=== PATIENT | female | born 1940 | race Caucasian/White ===

== ENCOUNTER 2018-02-14 11:20 | Inpatient (IN) | payer OTHER ==
[~2018-02-14] VITALS: Ht 162.6 cm; Wt 98.4 kg
--- NOTE | ~2018-02-14 | PROC ---
[facility] [address] [facility] [place] [address] PROCEDURE REPORT Name: RANDY ARELLANO Room: [address] IN .R.#: [id number] Admission: 02/14/18 Attend Phys: Amari Garcia, Discharge: 02/17/18 Date of : 42 Report #: [id number] THIS REPORT FOR: //name// For GI report, please see the Provation report in Perceptive 7 content. By: 0618Medical Records Staff GIBRAN /JOVITA
[~2018-02-14 11:20] MED LIST: ASPIRIN EC81 M1 PO; BACTRIM DS TAB1 EACH PO; BANOPHEN25 MG PO; CARVEDILOL25 MG PO; CELEBREX 200 M200 M1 PO; CLARINEX-D 121 EACH PO; CLOTRIMAZOLE AF30 GM TP; COLESTID1 GM PO; FLAGYL500 M1 PO; FLAGYL500 MG PO; KEFLEX500 MG PO; MACROBID 100 M100 M1 PO; MICROZIDE12.5 MG PO; NEURONTIN 300300 M1 PO; NORFLEX100 MG PO; OMEPRAZOLE 20 MG CAP PO; PHENERGAN 25 MG25 M1 PO; PRINIVIL20 MG PO; SIMVASTATIN80 MG PO; TIZANIDINE HCL4 M1 PO; TRAMADOL HCL50 MG PO; VITAMIN D1000 UNI1 PO; [UNRECOGNIZED DRUG - OTHER] PO
[2018-02-14 11:54] VITALS: BP 153/69
[2018-02-14 11:57] LABS: ABSOLUTE BASOPHILS 0.1 thou/uL (0.0-0.2); ABSOLUTE EOSINOPHILS 0.5 thou/uL (0.0-0.7); ABSOLUTE LYMPHOCYTES 1.6 thou/uL (0.8-5.3); ABSOLUTE MONOCYTES 0.6 thou/uL (0.0-1.2); ABSOLUTE NEUTROPHILS 6.5 thou/uL (1.6-8.1); BASOPHILS 1.3 %; EOSINOPHILS 5.5 %; HEMATOCRIT 34.8 % (37.0-47.0); HEMOGLOBIN 11.1 gm/dL (12.0-15.0); LYMPHOCYTES 17.5 %; MCH 24.5 pg (26.0-34.0); MCHC 31.8 g/dL (28.0-37.0); MCV 76.9 fL (80.0-100.0); MONOCYTES 5.9 %; MPV 8.7 fl. (7.2-11.1); NUCLEATED RBCS 0 /100WBC; PLATELET COUNT* 206 thou/uL (150-400); POLYS 69.8 %; RBC 4.53 mil/uL (4.20-5.00); RDW-CV 18.1 % (10.5-14.5); WBC 9.3 thou/uL (4.0-11.0)
[2018-02-14 12:04] LABS: ANION GAP 2 mmol/L (7-16); BUN 11 mg/dL (7-18); CALCIUM 9.3 mg/dL (8.5-10.1); CHLORIDE 104 mmol/L (98-107); CO2 32 mmol/L (21-32); CREATININE 0.9 mg/dL (0.6-1.3); GLUCOSE 117 mg/dL (70-99); POTASSIUM 3.7 mmol/L (3.5-5.1); SODIUM 138 mmol/L (136-145)
[2018-02-14 12:11] LABS: ALBUMIN 3.3 g/dL (3.4-5.0); ALKALINE PHOSPHATASE 116 U/L (46-116); LIPASE 144 U/L (73-393); SGOT 17 U/L (15-37); SGPT 16 U/L (30-65); TOTAL PROTEIN 7.1 g/dL (6.4-8.2); TROPONIN-I LEVEL <0.06 ng/mL (<0.06)
[2018-02-14] MEDS ORDERED: EXELON1 EAC1 TOP (12:21)
[2018-02-14] MEDS ORDERED: B12INJ IM (12:21)
[2018-02-14] MEDS ORDERED: NAMENDA 10 MG T10 MG PO (12:21)
[2018-02-14] MEDS ORDERED: SYNTHROID88 MCG PO (12:22)
[2018-02-14] MEDS ORDERED: CELEXA40 MG PO (12:22)
[2018-02-14 13:40] LABS: URINE BILIRUBIN NEGATIVE (Negative); URINE BLOOD NEGATIVE (Negative); URINE CLARITY CLEAR; URINE COLOR YELLOW; URINE GLUCOSE-RANDOM NEGATIVE (Negative); URINE KETONES NEGATIVE (Negative); URINE LEUKOCYTES-REFLEX NEGATIVE (Negative); URINE NITRITE-REFLEX NEGATIVE (Negative); URINE PROTEIN NEGATIVE (Negative)
[2018-02-14 16:03] VITALS: BP 156/76
[2018-02-14 16:30] VITALS: BP 141/66
[2018-02-14 20:00] VITALS: BP 135/71
[2018-02-15 08:00] VITALS: BP 151/68
--- NOTE | 2018-02-15 15:11 | EKG ---
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 : [id number] Requested By: Chelsea Roca Order Number: [id number] MD: Dakotah Painter Measurements Intervals [place] Rate: 63 P: 20 ID: [id number] QRS: -9 QRSD: 88 T: 32 QT: 461 QTc: 472 Interpretive Statements Sinus rhythm Left ventricular hypertrophy Compared to ECG 08/03/2015 10:28:23 Left ventricular hypertrophy now present T-wave abnormality no longer present Prolonged QT interval no longer present Electronically Signed On 02-15-2018 15:11:20 CDT by Dakotah Painter [email or web address] <ELECTRONICALLY SIGNED> By: Dakotah Painter MD, FAC 02/15/18 1511 1142 1142 Dakotah Painter MD, [facility] /EPI
[2018-02-15 16:14] VITALS: BP 147/64
[2018-02-15 20:00] VITALS: BP 154/81
[2018-02-16 08:30] VITALS: BP 186/75
[2018-02-16 10:39] VITALS: BP 186/75
[2018-02-16 15:30] VITALS: BP 156/81
[2018-02-16 20:00] VITALS: BP 143/69
[2018-02-17 05:19] LABS: ABSOLUTE BASOPHILS 0.1 thou/uL (0.0-0.2); ABSOLUTE EOSINOPHILS 0.5 thou/uL (0.0-0.7); ABSOLUTE LYMPHOCYTES 1.9 thou/uL (0.8-5.3); ABSOLUTE MONOCYTES 0.7 thou/uL (0.0-1.2); ABSOLUTE NEUTROPHILS 5.7 thou/uL (1.6-8.1); BASOPHILS 0.7 %; EOSINOPHILS 5.9 %; HEMATOCRIT 32.3 % (37.0-47.0); HEMOGLOBIN 10.3 gm/dL (12.0-15.0); LYMPHOCYTES 21.6 %; MCH 24.3 pg (26.0-34.0); MCHC 31.8 g/dL (28.0-37.0); MCV 76.6 fL (80.0-100.0); MONOCYTES 7.5 %; MPV 8.8 fl. (7.2-11.1); NUCLEATED RBCS 0 /100WBC; PLATELET COUNT* 184 thou/uL (150-400); POLYS 64.3 %; RBC 4.22 mil/uL (4.20-5.00); RDW-CV 18.1 % (10.5-14.5); WBC 8.8 thou/uL (4.0-11.0)
[2018-02-17 05:35] LABS: ALBUMIN 2.8 g/dL (3.4-5.0); CALCIUM 8.1 mg/dL (8.5-10.1); CREATININE 0.8 mg/dL (0.6-1.3); POTASSIUM 3.9 mmol/L (3.5-5.1); TOTAL BILIRUBIN 0.9 mg/dL (<0.1-1.0); TOTAL PROTEIN 5.8 g/dL (6.4-8.2)
[2018-02-17] MEDS ORDERED: ERYTHROMYCIN250 MG PO (09:36)
[2018-02-17 10:00] VITALS: BP 143/69
[2018-02-17 10:35] VITALS: BP 143/69
[2018-02-17 10:58] VITALS: BP 143/69
--- NOTE | 2018-02-23 08:22 | CON ---
[address] [address] CONSULTATION Name: RANDY ARELLANO Room: [address] IN .R.#: [id number] Admission: 02/14/18 Attend Phys: Amari Garcia, Discharge: 02/17/18 Date of : 42 Report #: [id number] THIS REPORT FOR: //name// CC: Daljit Garcia MD DATE OF SERVICE: 02/15/2018 REASON FOR CONSULT: Abnormal CT and gastric retention. REFERRING PHYSICIAN: This is a consult requested by Dr. Amari Garcia. HISTORY OF PRESENT ILLNESS: This is a 77-year-old female with history of chronic constipation who was last seen by us back in 2015 for diverticulitis versus colonic ischemia and constipation. The patient apparently has recently changed her diet and has been doing more fiber. She has history of Arslan shunt gastric bypass and has been complaining of fullness, epigastric pain and regurgitation. Her had brought her to hospital. During hospitalization, the patient underwent CT of abdomen and pelvis, which revealed some gastric retention, which may suggest partial gastric outlet obstruction. NG tube has been in place and so far 200 mL of NG aspirate has been produced. The patient is currently lying in bed comfortably with family around. She denies any nausea, vomiting, abdominal pain. Her last bowel movement was 3 days ago, which is not that unusual for her. She is passing gas. PAST MEDICAL HISTORY: Significant for history of Alzheimer disease, diverticulitis, hypothyroidism, hypertension, hyperlipidemia, gastric Arslan surgery back in , gallbladder disease status post cholecystectomy in 1967, total hysterectomy, osteoarthritis, and left knee arthroscopy. ALLERGIES AND MEDICATIONS: Please refer to hospital MAR. SOCIAL HISTORY: The patient lives at home with her . She has Alzheimer disease and her had recent stroke about a month ago. She denies tobacco or alcohol use. FAMILY HISTORY: Noncontributory. PHYSICAL EXAMINATION: VITAL SIGNS: Blood pressure of 151/68, respirations 16, pulse 61, temperature 97.7. LUNGS: [place] [address] CONSULTATION Name: RANDY Room: [address]#: [id number] Admission: 02/14/18 Attend Phys: Amari Garcia, Discharge: 02/17/18 Date of : 42 Report #: [id number] CARDIOVASCULAR: Regular. ABDOMEN: Large, soft, nontender, nondistended. Bowel sounds are positive. NEUROLOGIC: The patient is able to answer questions. LABORATORY DATA: Reveal sodium of 138, potassium 3.7, BUN is 11, creatinine 0.9, glucose is 117, AST 17, ALT 16, alkaline phosphatase 116, total bilirubin is 1, albumin is 3.3. WBC is 9.3, hemoglobin is 11.1, and platelet is 206. IMAGING: CT of abdomen and pelvis was obtained on admission. This was significant for post-surgical changes of gastric bypass surgery with a large collection within the left upper quadrant posterior to the stomach measuring approximately 11.3 x 8.7 cm. This contains gas and debris. ASSESSMENT AND PLAN: The patient with gastric retention, which may be due to a motility issue or gastroparesis versus anastomotic ulcer and gastric outlet obstruction. We will continue NG tube and start her on Protonix 40 mg IV b.i.d. We will perform an upper endoscopy tomorrow and make further recommendation once the EGD is complete. The patient and family are agreeable with plan. <ELECTRONICALLY SIGNED> By: Raquel Murphy MD 02/23/18 0822 [id number] Murphy MD /nt
== END 2018-02-17 12:30 | disposition home or self-care (01) | DRG 381 ==
LOC: M.ERS 11:20 → M.ORTHSURG 14:15 → M.TBA-ER 14:15 → M.ORTHSURG 16:53
PROVIDERS: Internal Medicine; Nurse Practitioner Family; ADMIT Family Medicine
PROC: 0DBA8ZX Excision of Jejunum, Via Natural or Artificial Opening Endoscopic, Diagnostic (ICD-10-PCS; principal; 2018-02-16)
PROC: 0DB68ZX Excision of Stomach, Via Natural or Artificial Opening Endoscopic, Diagnostic (ICD-10-PCS; principal; 2018-02-16)
DX: K31.1 Adult hypertrophic pyloric stenosis (principal); E44.1 Mild protein-calorie malnutrition; E86.0 Dehydration; R19.09 Other intra-abdominal and pelvic swelling, mass and lump; E78.00 Pure hypercholesterolemia, unspecified; E03.9 Hypothyroidism, unspecified; M19.90 Unspecified osteoarthritis, unspecified site; K59.09 Other constipation; G30.9 Alzheimer's disease, unspecified; F02.80 Dementia in other diseases classified elsewhere, unspecified severity, without behavioral disturbance, psychotic disturbance, mood disturbance, and anxiety; E78.5 Hyperlipidemia, unspecified; K31.89 Other diseases of stomach and duodenum; K44.9 Diaphragmatic hernia without obstruction or gangrene; K30 Functional dyspepsia; K21.9 Gastro-esophageal reflux disease without esophagitis; Z79.899 Other long term (current) drug therapy; Z88.6 Allergy status to analgesic agent; Z90.710 Acquired absence of both cervix and uterus; Z88.1 Allergy status to other antibiotic agents; Z88.8 Allergy status to other drugs, medicaments and biological substances; Z91.048 Other nonmedicinal substance allergy status; Z79.82 Long term (current) use of aspirin; Z90.49 Acquired absence of other specified parts of digestive tract; Z98.0 Intestinal bypass and anastomosis status

== ENCOUNTER 2018-06-04 19:20 | Inpatient (IN) | payer OTHER ==
[~2018-06-04] VITALS: Ht 157.5 cm; Wt 93.9 kg
[~2018-06-04 19:20] MED LIST changes: +B12INJ IM; +CELEXA40 MG PO; +ERYTHROMYCIN250 MG PO; +EXELON1 EAC1 TOP; +NAMENDA 10 MG T10 MG PO; +SYNTHROID88 MCG PO
[2018-06-04 19:26] VITALS: BP 151/82
[2018-06-04 19:44] LABS: ABSOLUTE BASOPHILS 0.1 thou/uL (0.0-0.2); ABSOLUTE EOSINOPHILS 0.4 thou/uL (0.0-0.7); ABSOLUTE LYMPHOCYTES 2.1 thou/uL (0.8-5.3); ABSOLUTE MONOCYTES 0.6 thou/uL (0.0-1.2); ABSOLUTE NEUTROPHILS 6.1 thou/uL (1.6-8.1); BASOPHILS 1.1 %; EOSINOPHILS 4.4 %; HEMATOCRIT 42.4 % (37.0-47.0); HEMOGLOBIN 13.7 gm/dL (12.0-15.0); LYMPHOCYTES 22.6 %; MCH 27.8 pg (26.0-34.0); MCHC 32.4 g/dL (28.0-37.0); MCV 85.8 fL (80.0-100.0); MONOCYTES 6.7 %; MPV 8.8 fl. (7.2-11.1); NUCLEATED RBCS 0 /100WBC; PLATELET COUNT* 172 thou/uL (150-400); POLYS 65.2 %; RBC 4.94 mil/uL (4.20-5.00); RDW-CV 27.5 % (10.5-14.5); WBC 9.4 thou/uL (4.0-11.0)
[2018-06-04 19:54] LABS: CALCIUM 8.7 mg/dL (8.5-10.1); CREATININE 0.8 mg/dL (0.6-1.3); POTASSIUM 3.6 mmol/L (3.5-5.1)
[2018-06-04 19:59] LABS: ALBUMIN 3.4 g/dL (3.4-5.0)
[2018-06-04 20:45] LABS: URINE BILIRUBIN NEGATIVE (Negative); URINE BLOOD NEGATIVE (Negative); URINE CLARITY CLEAR; URINE COLOR YELLOW; URINE GLUCOSE-RANDOM NEGATIVE (Negative); URINE KETONES NEGATIVE (Negative); URINE LEUKOCYTES-REFLEX NEGATIVE (Negative); URINE NITRITE-REFLEX NEGATIVE (Negative); URINE PROTEIN NEGATIVE (Negative)
[2018-06-04 20:53] LABS: LARGE PLATELETS RARE
[2018-06-04 20:54] LABS: PLATELET ESTIMATE ADEQUATE
[2018-06-04 20:55] LABS: ANISOCYTOSIS 3+; OVALOCYTES Occasional
[2018-06-04 20:56] LABS: MICROCYTES Occasional
[2018-06-04 23:15] VITALS: BP 146/72
[2018-06-04 23:50] VITALS: BP 121/72
--- NOTE | 2018-06-05 00:45 | NUR ---
ALERT AND ORIENTED X 4 BUT POOR HISTORIAN FEMALE PATIENT ADMITTED TO BED 104 BY CART FROM ER IN STABLE CONDITION. VITAL SIGNS STABLE ON ARRIVAL. DENIES PAIN OR NAUSEA. SCD'S PLACED. IVF'S INITIATED RIGHT IV SITE. ADMISSION ROUTINES IN PROGRESS. CONTINUE TO MONITOR.
--- NOTE | 2018-06-05 04:33 | NUR ---
PATIENT RESTING QUIETLY ON HOURLY ROUNDS SINCE ARRIVAL TO UNIT. IVF'S PER ORDERS. NPO AT MIDNIGHT FOR GI CONSULT THIS AM. CONTINUE TO MONITOR.
[2018-06-05 08:00] VITALS: BP 143/65
--- NOTE | 2018-06-05 12:01 | NUR ---
PT.WAS ALERT AND ORIENTED. AT BEDSIDE. SHE SAID SHE IS INDEPENDENT AT HOME. USES NO DME. NO HX OF HOME HEALTH OR SNF. AND DAUGHTER IS SUPPORTIVE. NO DISCHARGE NEEDS ANTICIPATED.
[2018-06-05 16:54] VITALS: BP 129/62
--- NOTE | 2018-06-05 17:01 | NUR ---
SHIFT NOTE - PT ADVANCED TO CLEAR LIQUID DIET. TOLERATING WELL. DENIES ANY NAUSEA OR ABD PAIN. PT UP WITH ASSIST TO BATHROOM WITH NO DIFFICULTIES. FAMILY PRESENT AT BEDSIDE THIS AFTERNOON.
[2018-06-05 21:30] VITALS: BP 144/76
--- NOTE | 2018-06-06 06:45 | NUR ---
PATIENT ALERT AND ORIENTED BUT FORGETFUL AT TIMES. NO C/O N/V OR PAIN. IV FLUIDS INFUSING WITHOUT DIFFICULTY. UP WITH STAND BY ASSIST TO BEDSIDE COMMODE. BED ALARM ON. CALL LIGHT WITHIN REACH. WILL CONTINUE TO MONITOR.
[2018-06-06 09:54] VITALS: BP 162/75
[2018-06-06 16:00] VITALS: BP 148/79
--- NOTE | 2018-06-06 17:23 | NUR ---
ASSUMED CARE OF PATIENT AFTER MORNING REPORT AT APPROX 0720. ALERT AND ORIENTED X4. ASSESSMENT COMPLETED AND CHARTED. VSS ON ROOM AIR. PATIENT HAS HAD NO COMPLAINTS OF NAUSEA OR SOA. PAIN HAS BEEN MANAGED WITH MEDICATION. FLUIDS INFUSED ORDERED. PATIENTS DIET ADVANCED TO SOFT FIBER RESTRICTED, TOLERATING THIS WELL. SUPPORTIVE FAMILY AT BEDSIDE THROUGHOUT SHIFT. PATEINT RESTING COMFORTABLY IN BED AT THIS TIME. HOURLY ROUNDS MAINTAINED, CALL LIGHT WITHIN REACH, NURSING WILL CONTINUE TO MONITOR.
[2018-06-06 21:35] VITALS: BP 132/72
--- NOTE | 2018-06-07 05:35 | NUR ---
PATIENT RESTING QUIETLY ON HOURLY ROUNDS. UP TO BATHROOM WITH 1 ASSIST. DENIED NEED FOR PAIN MEDICATION. NO C/O N/V. IVF INFUSING WITHOUT DIFFICULTY. CONTINUES ON ORAL ANTIBIODIC. PROGRESSING TOWARD DISCHARGE GOAL.
[2018-06-07 09:59] VITALS: BP 145/80
[2018-06-07] MEDS ORDERED: ERYTHROMYCIN250 M1 PO (13:26)
[2018-06-07 13:28] VITALS: BP 145/80
--- NOTE | 2018-06-07 14:26 | NUR ---
ASSUMED CARE OF PATIENT AFTER MORNING REPORT AT APPROX 0720. ALERT AND ORIENTED X4. ASSESSMENT COMPLETED AND CHARTED. VSS ON ROOM AIR. NO COMPLAINTS OF NAUSEA OR SOA. PAIN MANAGED WITH MEDICATION. FLUIDS INFUSED ORDERED. TOLERATING DIET WELL. DISCHARGED AT 1345, ALL PERSONAL BELONGINGS AND DISCHARGE INFORMATION SENT WITH PATIENT UPON DISCHARGE.
--- NOTE | 2018-06-25 13:22 | CON ---
[facility] [address] [place] [address] CONSULTATION Name: RANDY ARELLANO Room: [address] IN .R.#: [id number] Admission: 06/04/18 Attend Phys: Alea Pichardo Discharge: 06/07/18 Date of : 42 Report #: [id number] THIS REPORT FOR: //name// CC: Daljit Sosa HISTORY OF PRESENT ILLNESS: The patient is a pleasant 77-year-old female who was consulted for abdominal pain, nausea. The patient is known to our service from her prior hospitalization in January when she presented with similar symptoms. The patient has prior history of diabetes, hypertension, and Alzheimer's disease. She reports lower abdominal pain that presented yesterday at the time of admission and has subsequently resolved over the course of her admission. She denies any significant abdominal pain, nausea or vomiting at this time. She reports the pain was located in the lower abdomen, was sharp and nonradiating. She did not report any change in her bowel habits at that time. The patient had prior history of gastric bypass for weight loss and Arslan shunt. During her last hospitalization, CT scan demonstrated dilation of the gastric pouch and an EGD demonstrated some inflammation around the gastrojejunal anastomosis, but there was no stricture. PAST MEDICAL HISTORY: As mentioned before, the patient has history of Alzheimer's, hypertension, hyperlipidemia, and diabetes mellitus that is controlled with diet. PAST SURGICAL HISTORY: As mentioned before, the patient has a remote history of gastric bypass and Arslan shunt surgery. FAMILY HISTORY: The patient lives at home with her . There is no significant history of smoking, alcohol or recreational drug use. REVIEW OF SYSTEMS: A comprehensive 10-point review of systems is negative except for what is mentioned in the HPI. PHYSICAL EXAMINATION: VITAL SIGNS: Temperature 36.8, pulse rate 60, blood pressure 143/65, respirations 16, and pulse ox 95% on room air. GENERAL: The patient is alert, awake. HEENT: Mucous membranes are moist. There is no congestion. NECK: Supple. There is no supraclavicular lymphadenopathy. CARDIOVASCULAR: Rate and rhythm regular, S1, S2 present. LUNGS: Clear to auscultation. ABDOMEN: Soft. There is no tenderness. There is no guarding and there is no organomegaly palpable. EXTREMITIES: Warm and well perfused. There is no pitting edema. SKIN: [place] [address] CONSULTATION Name: RANDY ARELLANO Room: [address]#: [id number] Admission: 06/04/18 Attend Phys: Alea Pichardo Discharge: 06/07/18 Date of : 42 Report #: [id number] LABORATORY DATA: Hemoglobin 13.7, hematocrit 42.4, platelet count 172. Sodium 139, potassium 3.6, chloride 103, bicarbonate 33, BUN 13, creatinine 0.8, alkaline phosphatase 122, AST 24, ALT 21, total bilirubin 1, albumin 3.4. IMAGING DATA: CT abdomen with IV contrast: No acute abnormalities in the abdomen and pelvis. Previous gastric bypass procedure. Markedly distended gastric pouch, similar to previous exams. ASSESSMENT AND PLAN: This is a pleasant 77-year-old female with past medical history of gastric bypass for weight loss, presented with an episode of acute abdominal pain. CT shows evidence of dilation of the gastric pouch, which is similar to her previous episode. The patient was previously placed on erythromycin, but she stopped this. Erythromycin has been resumed while she is inpatient. The patient is bound to develop tachyphylaxis to erythromycin. I would recommend placing her on erythromycin 1 week per month and then stopping it off and then resuming it after 3 weeks. I suspect she has some underlying gastric dysmotility, but because of her gastric bypass history, gastric emptying test may be deferred. The patient also appears to have chronic constipation at baseline and I would place her on MiraLax or Metamucil daily when she returns home. These recommendations were discussed with the patient's daughter who is at her bedside. <ELECTRONICALLY SIGNED> By: Cruzito Yap MD 06/25/18 1322 1654 [id number] Yap MD /nt
== END 2018-06-07 13:45 | disposition home or self-care (01) | DRG 392 ==
LOC: M.ERS 19:20 → M.ORTHSURG 22:33 → M.TBA-ER 22:33 → M.ORTHSURG 23:32
PROVIDERS: Emergency Medicine; ADMIT Internal Medicine
DX: K31.4 Gastric diverticulum (principal); I10 Essential (primary) hypertension; E78.00 Pure hypercholesterolemia, unspecified; E03.9 Hypothyroidism, unspecified; G30.9 Alzheimer's disease, unspecified; F02.80 Dementia in other diseases classified elsewhere, unspecified severity, without behavioral disturbance, psychotic disturbance, mood disturbance, and anxiety; K21.9 Gastro-esophageal reflux disease without esophagitis; E86.0 Dehydration; E11.9 Type 2 diabetes mellitus without complications; M19.90 Unspecified osteoarthritis, unspecified site; G31.9 Degenerative disease of nervous system, unspecified; E66.01 Morbid (severe) obesity due to excess calories; Z68.37 Body mass index [BMI] 37.0-37.9, adult; Z90.49 Acquired absence of other specified parts of digestive tract; Z90.710 Acquired absence of both cervix and uterus; Z88.6 Allergy status to analgesic agent; Z88.1 Allergy status to other antibiotic agents; Z88.0 Allergy status to penicillin; Z88.8 Allergy status to other drugs, medicaments and biological substances; Z98.84 Bariatric surgery status; Z79.82 Long term (current) use of aspirin; Z79.899 Other long term (current) drug therapy

== ENCOUNTER 2021-07-04 16:32 | Observation (INO) | payer OTHER ==
[~2021-07-04] VITALS: Ht 152.4 cm; Wt 104.8 kg
[~2021-07-04 16:32] MED LIST changes: +ERYTHROMYCIN250 M1 PO
[2021-07-04 16:39] VITALS: BP 105/59
[2021-07-04] MEDS ORDERED: SYNTHROID88 MC1 PO (16:49)
[2021-07-04] MEDS ORDERED: CELEBREX 200 M200 M1 PO (16:49)
[2021-07-04] MEDS ORDERED: ACYCLOVIR 400400 MG PO (16:50)
[2021-07-04] MEDS ORDERED: CALCIUM 1,0001 EACH PO (16:50)
[2021-07-04 17:14] LABS: ABSOLUTE BASOPHILS 0.2 thou/uL (0.0-0.2); ABSOLUTE EOSINOPHILS 0.3 thou/uL (0.0-0.7); ABSOLUTE LYMPHOCYTES 1.3 thou/uL (0.8-5.3); ABSOLUTE MONOCYTES 0.9 thou/uL (0.0-1.2); ABSOLUTE NEUTROPHILS 11.5 thou/uL (1.6-8.1); BASOPHILS 1.1 %; EOSINOPHILS 2.2 %; HEMATOCRIT 36.8 % (37.0-47.0); LYMPHOCYTES 9.2 %; MCH 30.6 pg (26.0-34.0); MCHC 32.7 g/dL (28.0-37.0); MCV 93.5 fL (80.0-100.0); MONOCYTES 6.7 %; MPV 8.7 fl. (7.2-11.1); NUCLEATED RBCS 0 /100WBC; PLATELET COUNT* 160 thou/uL (150-400); POLYS 80.8 %; RBC 3.93 mil/uL (4.20-5.00); RDW-CV 15.1 % (10.5-14.5); WBC 14.2 thou/uL (4.0-11.0)
[2021-07-04 17:22] LABS: CALCIUM 8.6 mg/dL (8.5-10.1); CREATININE 1.8 mg/dL (0.6-1.3); POTASSIUM 4.1 mmol/L (3.5-5.1)
[2021-07-04 17:33] LABS: ALBUMIN 3.1 g/dL (3.4-5.0); TOTAL BILIRUBIN 0.8 mg/dL (<0.1-1.0); TOTAL PROTEIN 6.7 g/dL (6.4-8.2)
[2021-07-04 17:33] LABS: URINE BILIRUBIN NEGATIVE (Negative); URINE BLOOD TRACE (Negative); URINE CLARITY CLEAR; URINE COLOR YELLOW; URINE GLUCOSE-RANDOM NEGATIVE (Negative); URINE KETONES NEGATIVE (Negative); URINE LEUKOCYTES-REFLEX NEGATIVE (Negative); URINE NITRITE-REFLEX NEGATIVE (Negative); URINE PROTEIN NEGATIVE (Negative); URINE UROBILINOGEN 0.2 E.U./dl (0.2-1.0)
[2021-07-04 21:24] LABS: BE 4.9 mmol/L (-2 to +3); PCO2 49.3 mmHg (35.0-45.0); PO2 89.2 mmHg (75.0-100.0)
[2021-07-04 22:32] VITALS: BP 135/59
[2021-07-05] VITALS (8 sets, daily range): BP systolic 119–169; BP diastolic 58–87
--- NOTE | 2021-07-05 01:00 | NUR ---
PT PLACED ON BEDPAN. PT THROW BED BROWN AT TECH. PT CALL TECH " WHY ARE YOU IN MY ROOM" PT SCREAM THAT NO ONE WILL HELP HER. RN AND TECH AT BEDSIDE. PT WALKED TO BS. PT STILL YELLING THAT NO ONE WILL HELP HER. RN AND TECH STILL AT BEDSIDE. PT PLACED IN BED AND REPOSTINED. RN STOOD AT BEDSIDE INTILL PT EYE WHERE CLOSED AND REST
[2021-07-05 03:07] LABS: HEMATOCRIT 33.9 % (37.0-47.0); HEMOGLOBIN 11.3 gm/dL (12.0-15.0); MCH 30.9 pg (26.0-34.0); MCHC 33.2 g/dL (28.0-37.0); MPV 8.9 fl. (7.2-11.1); RBC 3.65 mil/uL (4.20-5.00); RDW-CV 15.2 % (10.5-14.5); WBC 11.5 thou/uL (4.0-11.0)
[2021-07-05 03:18] LABS: CALCIUM 8.4 mg/dL (8.5-10.1); CREATININE 1.6 mg/dL (0.6-1.3); POTASSIUM 4.1 mmol/L (3.5-5.1)
--- NOTE | 2021-07-05 08:30 | NUR ---
PT HAD LARGE SOFT FORMED STOOL THIS AM.
--- NOTE | 2021-07-05 10:00 | NUR ---
PT HAD ANOTHER MODERATE BOWEL MOVEMENT.
--- NOTE | 2021-07-05 11:19 | EKG ---
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: ADRIAN : 1940 Requested By: Ahsan Mora Order Number: [id number] MD: Artemio Oro Measurements Intervals [place] Rate: 80 P: 24 ND: 191 QRS: -8 QRSD: 96 T: 49 QT: 447 QTc: 516 Interpretive Statements Sinus rhythm Low voltage, precordial leads Prolonged QT interval Compared to ECG 02/14/2018 11:42:48 Low QRS voltage now present Prolonged QT interval now present Left ventricular hypertrophy no longer present Electronically Signed On 07-05-2021 11:19:00 CDT by Artemio Oro [email or web address] <ELECTRONICALLY SIGNED> By: Artemio Oro MD, FACC 07/05/21 1119 99 99 Artemio Oro MD, FACC /EPI
--- NOTE | 2021-07-05 17:48 | NUR ---
ARRIVED AT 1700. THE PATIENT IS ALERT. ASSIST X1. BOWEL MOVEMENT 07/05/21. SR ON THE MONITOR. CALL LIGHT WITHIN REACH. DENIES CP OR SOB.
--- NOTE | 2021-07-05 17:51 | NUR ---
UNDER HER LEFT BREAST IS SORE AND ITS DISCOLORED.
--- NOTE | 2021-07-06 04:55 | NUR ---
INITAL ASSESSMENT PT VERY AGITATED, SUSPICIOUS, PARINOID. PT REFUSING TO TAKE MEDICATION. CALLED TO TRY TO CALM PT. TOLD RN THAT HE DID'NY HAVE MUCH LUCK GETTING PT TO TAKE MEDICATIONS. SAID PT TOOK MEDICATIONS FOR HER DTR. DTR NOTIFIED AND SHE CAME IN TO ASSIST WITH GETTING PT TO TAKE MEDS. DTR WAS ABLE TO CONVINCE PT TO TAKE MEDICATION. SHORTLY AFTER DTR LEFT PT COULD NOT REMEMEBER THIS RN. 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
[2021-07-06 05:06] VITALS: BP 162/73
--- NOTE | 2021-07-06 06:45 | NUR ---
PT TOOK AM MEDICATIONS WITHOUT HESITATION
[2021-07-06 08:00] VITALS: BP 141/75
[2021-07-06 09:28] LABS: ABSOLUTE BASOPHILS 0.1 thou/uL (0.0-0.2); ABSOLUTE EOSINOPHILS 0.3 thou/uL (0.0-0.7); ABSOLUTE MONOCYTES 0.3 thou/uL (0.0-1.2); ABSOLUTE NEUTROPHILS 4.3 thou/uL (1.6-8.1); BASOPHILS 0.9 %; EOSINOPHILS 5.9 %; HEMATOCRIT 37.5 % (37.0-47.0); HEMOGLOBIN 12.5 gm/dL (12.0-15.0); LYMPHOCYTES 16.2 %; MCH 31.3 pg (26.0-34.0); MCHC 33.3 g/dL (28.0-37.0); MCV 93.9 fL (80.0-100.0); MONOCYTES 4.6 %; MPV 8.9 fl. (7.2-11.1); NUCLEATED RBCS 0 /100WBC; PLATELET COUNT* 160 thou/uL (150-400); POLYS 72.4 %; RBC 3.99 mil/uL (4.20-5.00); RDW-CV 14.9 % (10.5-14.5); WBC 5.9 thou/uL (4.0-11.0)
[2021-07-06 09:32] LABS: CALCIUM 8.7 mg/dL (8.5-10.1); CREATININE 1.1 mg/dL (0.6-1.3); MAGNESIUM 1.8 mg/dL (1.8-2.4); POTASSIUM 4.2 mmol/L (3.5-5.1)
--- NOTE | 2021-07-06 09:44 | NUR ---
The patient is alert x1. Able to make most needs known. Denies CP or SOB. SR on the monitor. Call light within reach. Fall precautions in place. left leg slightly pink. Her is at the bedside.
--- NOTE | 2021-07-06 10:11 | NUR ---
CM ASSESSMENT: PT ALERT, BUT FORGETFUL. PT'S SPOUSE AT THE BEDSIDE AND ASSIST WITH ASSESSMENT. PT RESIDES AT HOME WITH SPOUSE AND HE ASSIST THE PT WITH ALL CARES. PT USES A CANE OR WALKER FOR MOBILITY. PT HAS 0 HX OF HH OR SNF. PLAN FOR THE PT TO D/C HOME TODAY WITH HH AND PT'S DTR TO ASSIST WITH HH CHOICE. CM WILL REMAIN AVAILABLE TO ASSIST AND FOLLOW NEEDED.
[2021-07-06 12:00] VITALS: BP 159/75
[2021-07-06 12:07] VITALS: BP 141/75
[2021-07-06] MEDS ORDERED: DOXYCYCLINE 10100 M2 PO (12:44)
[2021-07-06 13:42] VITALS: BP 141/75
--- NOTE | 2021-07-06 14:11 | NUR ---
Discharge inscructions give to the patient and daughter. No questions voiced. The patient IV access and monitor removed. the patient belonings removed from the room. The patient was wheeled to a private car.
== END 2021-07-06 14:30 | disposition home or self-care (01) ==
LOC: M.ERS 16:32 → M.2W 18:25 → M.TBA-ER 18:25 → M.2W 18:25
PROVIDERS: Emergency Medicine Emergency Medical Services; Personal Emergency Response Attendant; ADMIT Internal Medicine; ATTEND Internal Medicine
DX: R41.82 Altered mental status, unspecified (principal); T36.8X5A Adverse effect of other systemic antibiotics, initial encounter; N17.0 Acute kidney failure with tubular necrosis; G93.41 Metabolic encephalopathy; L03.90 Cellulitis, unspecified; Z20.822 Contact with and (suspected) exposure to COVID-19; I10 Essential (primary) hypertension; E78.5 Hyperlipidemia, unspecified; G30.9 Alzheimer's disease, unspecified; F02.80 Dementia in other diseases classified elsewhere, unspecified severity, without behavioral disturbance, psychotic disturbance, mood disturbance, and anxiety; K21.9 Gastro-esophageal reflux disease without esophagitis; M19.90 Unspecified osteoarthritis, unspecified site; Z79.01 Long term (current) use of anticoagulants; Z79.899 Other long term (current) drug therapy; E66.09 Other obesity due to excess calories; Z23 Encounter for immunization; Z68.42 Body mass index [BMI] 45.0-49.9, adult; Y92.89 Other specified places as the place of occurrence of the external cause

== ENCOUNTER → 2021-11-14 | Outpatient (CLI) | payer OTHER ==
[~2021-11-14] MED LIST changes: +ACYCLOVIR 400400 MG PO; +CALCIUM 1,0001 EACH PO; +DOXYCYCLINE 10100 M2 PO; +SYNTHROID88 MC1 PO
--- NOTE | 2021-11-14 14:23 | 2DMMODE ---
[place] [address] 2 D/M-MODE ECHOCARDIOGRAM Name: RANDY Kem Room: [facility]#: [id number] Admission: 11/14/21 Attend Phys: Dominique Kirkland, Discharge: Date of : 42 Date of Service: 11/14/21 1423 Report #: [id number] THIS REPORT FOR: cc: Tommy Obando John E. DO Blick,Dakotah Wells MD [facility] ~ APPROVED REPORT Study performed: 11/14/2021 14:26:34 EXAM: Comprehensive 2D, Doppler, and color-flow Echocardiogram Patient Location: Out-Patient BSA: 1.92 HR: 75 bpm BP: 152/88 mmHg Other Information Study Quality: Adequate Indications Hypertension/HDD 2D Dimensions IVSd: 11.89 (7-11mm) LVOT Diam: 19.86 (18-24mm) LVDd: 45.04 mm PWd: 11.91 (7-11mm) Ascending Ao: 32.15 (22-36mm) LVDs: 33.60 (25-40mm) Aortic Root: 31.50 mm Volumes Left Atrial Volume (Systole) LA ESV Index: 13.40 mL/m2 Aortic Valve AoV Peak Jon.: 1.20 m/s AO Peak Gr.: 5.80 mmHg LVOT Max P.44 mmHg AO Mean Gr.: 2.85 mmHg LVOT Mean P.22 mmHg LVOT Max V: 0.78 m/s AO V2 VTI: 20.66 cm LVOT Mean V: 0.51 m/s LEYDA (VTI): 3.57 cm2 LVOT V1 VTI: 23.80 cm Mitral Valve E/A Ratio: 0.67 [place] [address] 2 D/M-MODE ECHOCARDIOGRAM Name: RANDY ARELLANO Room: [facility]#: [id number] Admission: 11/14/21 Attend Phys: Dominique Kirkland, Discharge: Date of : 42 Date of Service: 11/14/21 1423 Report #: [id number] MV Decel. Time: 269.35 ms MV E Max Jon.: 0.53 m/s MV PHT: 78.11 ms MVA (PHT): 2.82 cm2 TDI E/Lateral E': 7.57 E/Medial E': 7.57 Medial E' Jon.: 0.07 m/s Lateral E' Jon.: 0.07 m/s Pulmonary Valve PV Peak Jon.: 0.77 m/s PV Peak Gr.: 2.37 mmHg Tricuspid Valve RAP Estimate: 5.00 mmHg TR Peak Gr.: 24.26 mmHg RVSP: 29.26 mmHg PA Pressure: 29.26 mmHg Left Ventricle The left ventricle is normal size. There is normal LV segmental wall motion. Mild concentric left ventricular hypertrophy. Left ventricular systolic function is normal. The left ventricular ejection fraction is within the normal range. LVEF is 55-60%. Grade I - abnormal relaxation pattern. Right Ventricle The right ventricle is normal size. The right ventricular systolic function is normal. Atria The left atrium size is normal. The right atrium size is normal. Aortic Valve Aortic valve is not well visualized. No aortic regurgitation is present. There is no aortic valvular stenosis. Mitral Valve The mitral valve is normal in structure. There is no mitral valve regurgitation noted. No evidence of mitral valve stenosis. Tricuspid Valve The tricuspid valve is normal in structure. Mild tricuspid regurgitation[place] [address] 2 D/M-MODE ECHOCARDIOGRAM Name: RANDY ARELLANO Kem Room: [facility]#: [id number] Admission: 11/14/21 Attend Phys: Dominique Kirkland, Discharge: Date of : 42 Date of Service: 11/14/21 1423 Report #: [id number] Pulmonic valve is not well visualized. There is no pulmonic valvular regurgitation. Great Vessels The aortic root is normal in size. IVC is normal in size and collapses >50% with inspiration. Pericardium There is no pericardial effusion. <Conclusion> Mild concentric left ventricular hypertrophy. LVEF is 55-60%. <ELECTRONICALLY SIGNED> By: Dakotah Painter MD, [facility] 11/14/21 1423 142 142 Dakotah Painter MD, FACC /INF
== END ==
LOC: M.CRD 12:56
PROVIDERS: ATTEND Nurse Practitioner Family
DX: I37.1 Nonrheumatic pulmonary valve insufficiency (principal); I10 Essential (primary) hypertension